=== PATIENT | female | born 1950 | race Caucasian/White ===

== ENCOUNTER 2022-06-11 14:36 | Emergency (ER) | payer OTHER ==
[2022-06-11 14:49] VITALS: BMI 21.7
[2022-06-11 17:27] LABS: BASO % 0.3 % (0-2.0); EOS % 1.4 % (0-4.5); HEMATOCRIT 33.3 % (32.4-45.2); HEMOGLOBIN 10.8 GM/dL (10.7-15.3); LYMPH % 14.4 % (8-40); MCHC 32.3 g/dl (32.0-36.0); MEAN CELL VOLUME 92.9 fl (80-96); MEAN PLT VOLUME 7.9 fl (7.5-11.1); MONO % 6.4 % (3.8-10.2); NEUT % 77.5 % (42.8-82.8); PLATELET COUNT 154 10^3/uL (134-434); RBC 3.59 M/mm3 (3.60-5.2); WHITE BLOOD COUNT 6.9 K/mm3 (4.0-10.0)
[2022-06-11] MEDS ORDERED: ACETAMINOPHEN 1000 MG/100 ML BAG IVPB ONE (17:31)
[2022-06-11 17:34] LABS: INR 1.15 (0.83-1.09); PROTHROMBIN TIME (PATIENT) 13.3 SEC (9.7-13.0)
[2022-06-11 17:36] LABS: ACTIVATED PTT 27.4 SECONDS (25.2-36.5)
[2022-06-11] MEDS ORDERED: ACETAMINOPHEN INJECTION 100 ML IVPB ONE (17:36)
[2022-06-11 17:43] LABS: POTASSIUM 4.5 mmol/L (3.5-5.1)
[2022-06-11 17:44] LABS: BLOOD UREA NITROGEN 61.3 mg/dL (7-18); CALCIUM 9.5 mg/dL (8.5-10.1); MAGNESIUM 1.6 mg/dL (1.8-2.4)
[2022-06-11 17:45] LABS: ALBUMIN 3.1 g/dl (3.4-5.0)
[2022-06-11 17:48] LABS: CREATININE 2.8 mg/dL (0.55-1.3)
[2022-06-11 17:49] LABS: BILIRUBIN,TOTAL 0.3 mg/dL (0.2-1); TOT PROT 8.2 g/dl (6.4-8.2)
[2022-06-11] MEDS ORDERED: morphine CARPU-JECT 4 MG/1 ML DISP.SYRIN IVPUSH ONE (20:15)
[2022-06-11] MEDS ORDERED: morphine SULFATE 4 MG/ML VIAL ONE (21:02)
[2022-06-11 21:43] LABS: PH,URINE 5.5 (5.0-8.0); URINE APPEARANCE TURBID; URINE BILIRUBIN NEGATIVE (NEGATIVE); URINE COLOR DK YELLOW; URINE GLUCOSE (UA) NEGATIVE (NEGATIVE); URINE KETONE NEGATIVE (NEGATIVE); URINE LEUK ESTERASE 3+ (NEGATIVE); URINE NITRITE NEGATIVE (NEGATIVE); URINE PROTEIN 2+ (NEGATIVE); URINE UROBILINOGEN 0.2 mg/dL (0.2-1.0)
[2022-06-11] MEDS ORDERED: CEFTRIAXONE 1,000 MG in DEXTROSE 5%-WATER - 50 ML IVPB ONE (23:06)
[2022-06-11] MEDS ORDERED: CEFTRIAXONE 1 GM/50 ML BAG ONE (23:31)
[2022-06-11 23:37] LABS: URINE WBC 50-100 (NEGATIVE)
[2022-06-11 23:38] LABS: URINE BACTERIA MANY /hpf (NEGATIVE)
[2022-06-11] MEDS ORDERED: HYDROmorphone HCl 2 MG/ML VIAL ONE (23:41)
[2022-06-12] MEDS ORDERED: HYDROmorphone HCl 2 MG/ML VIAL IVPUSH ONE ×2 (00:02→03:52)
[2022-06-12 00:54] VITALS: RESP 18
[2022-06-12] MEDS ORDERED: HYDROmorphone HCl 2 MG/ML VIAL ONE (03:52)
[2022-06-12 05:57] VITALS: BP 104/58; PULSE 69; TEMP 98.8
== END 2022-06-12 06:04 | disposition short-term general hospital (02) ==
LOC: JER 14:36
PROC: 3E03329 Introduction of Other Anti-infective into Peripheral Vein, Percutaneous Approach (ICD-10-PCS; principal; 2022-06-11)
PROC: 3E033GC Introduction of Other Therapeutic Substance into Peripheral Vein, Percutaneous Approach (ICD-10-PCS; 2022-06-11)
PROC: 3E033GC Introduction of Other Therapeutic Substance into Peripheral Vein, Percutaneous Approach (ICD-10-PCS; 2022-06-11)
PROC: 3E033GC Introduction of Other Therapeutic Substance into Peripheral Vein, Percutaneous Approach (ICD-10-PCS; 2022-06-12)
PROC: 3E033GC Introduction of Other Therapeutic Substance into Peripheral Vein, Percutaneous Approach (ICD-10-PCS; 2022-06-12)
DX: N17.9 Acute kidney failure, unspecified (principal); C55 Malignant neoplasm of uterus, part unspecified; R10.9 Unspecified abdominal pain; R42 Dizziness and giddiness; R68.83 Chills (without fever); Z20.822 Contact with and (suspected) exposure to COVID-19
CPT/HCPCS: 0241U-QW; 36415; 74176-TC; 80053; 81003; 82436; 82570; 83735; 83935; 84133; 84300; 85025; 85610; 85730; 86850; 86900; 86901; 87086; 87186; 93005; 93010; 96365; 96375; 96376; 99285-25